=== PATIENT | female | born 1950 ===

== ENCOUNTER 2018-06-16 13:43 | Emergency (ER) | payer MEDICARE, MEDICAID ==
[2018-06-16 13:55] VITALS: BMI 29.5
[2018-06-16 13:59] VITALS: RESP 18
[2018-06-16 14:42] LABS: SQUAMOUS EPITHIAL 1 /hpf (0-5); URINE BACTERIA OCC (<OCC); URINE BILIRUBIN NEGATIVE (NEGATIVE); URINE BLOOD NEGATIVE (NEGATIVE); URINE CLARITY Clear (Clear); URINE COLOR Yellow (YELLOW); URINE GLUCOSE (UA) NORMAL (Normal); URINE LEUKOCYTE ESTERASE TRACE Leu/uL (Negative); URINE PROTEIN NEGATIVE (NEGATIVE); URINE UROBILINOGEN NORMAL mg/dL (0.2-1.0)
[2018-06-16] MEDS ORDERED: Lidocaine 5% Patch TD STA (15:54)
[2018-06-16] MEDS ORDERED: Lidocaine 5% Patch TD ONE (16:04)
--- NOTE | 2018-06-16 16:09 | C.PDOC ---
History Of Present Illness 67 year old female presents to the emergency department with complaints of low back pain radiating down to both legs for the past 2 weeks, associated with pain to the left flank area. Patient denies dysuria, hematuria, weakness, or numbness. Time Seen by Provider: 06/16/18 14:13 Chief Complaint (Nursing): Back Pain History Per: Patient History/Exam Limitations: no limitations Onset/Duration Of Symptoms: Days Current Symptoms Are (Timing): Still Present Past Medical History Reviewed: Historical Data, Nursing Documentation, Vital Signs Vital Signs: Last Vital Signs Temp 98.5 F 06/16/18 18:09 Pulse 64 06/16/18 18:09 Resp 18 06/16/18 18:09 BP 158/78 H 06/16/18 18:09 Pulse Ox 98 06/16/18 18:09 - Medical History PMH: Anemia, Arthritis, Colonic Polyps, Gastritis, HTN, Rheumatoid Arthritis Denies: Fractures, Chronic Kidney Disease Surgical History: Endoscopy, Tonsillectomy - [facility] Procedures CLOSED [ENDOSCOPIC] BIOPSY OF LARYNX (06/22/15) Family History: States: No Known Family Hx - Social History Hx Tobacco Use: No Hx Alcohol Use: No Hx Substance Use: No - Immunization History Hx Tetanus Toxoid Vaccination: No Hx Influenza Vaccination: No Hx Pneumococcal Vaccination: No Review Of Systems Except As Marked, All Systems Reviewed And Found Negative. Constitutional: Negative for: Fever, Chills Cardiovascular: Negative for: Chest Pain Respiratory: Negative for: Shortness of Breath Gastrointestinal: Negative for: Nausea, Vomiting Genitourinary: Negative for: Dysuria, Hematuria Musculoskeletal: Positive for: Back Pain (radiates to both legs) Neurological: Negative for: Weakness, Numbness Physical Exam - Physical Exam Appears: Non-toxic, No Acute Distress Skin: Warm, Dry, No Rash Head: Atraumatic, Normacephalic Eye(s): bilateral: Normal Inspection Oral Mucosa: Moist Neck: Supple Gastrointestinal/Abdominal: Soft, No Tenderness Back: Paraspinal Tenderness (paraspinal midline), Other (Tenderness to left side muscles and left buttocks) Extremity: Other (Tenderness to left posterior thigh) Neurological/Psych: Oriented x3, Normal Speech, Normal Cognition, Other (No neuro deficits) ED Course And Treatment O2 Sat by Pulse Oximetry: 97 (RA) Pulse Ox Interpretation: Normal - Other Rad Lumbar Spine X-ray X-Ray: Read By Radiologist Interpretation: Findings: Levoscoliotic curvature of the lumbar spine. Moderate retrolisthesis of L1 on L2 and L2 on L3. Multilevel anterior osteophyte formation. Prominent anterior osteophytosis at the T10-11 level. Lower level facet hypertrophy and sclerosis. Moderate degenerative changes of the bilateral hips with subchondral sclerosis and osteophytosis. Soft tissue calcifications in the posterior soft tissues at the level of sacrum. Calcified phleboliths in the pelvis. Impression: Degenerative changes. If pain persists , consider MRI. Progress Note: Urinalysis and LS Spine X-ray were ordered. Urinalysis showed negative results and LS Spine X-ray showed moderate degenerative joint disease. On re-evaluation patient feels better, ambulatory with no neuro deficit. Patient is stable to be d/c home with PMD follow up. Disposition - Disposition Referrals: Brian Carney MD [Staff Provider] - Disposition: HOME/ ROUTINE Disposition Time: 18:00 Condition: STABLE Additional Instructions: Follow up with your PMD within 1-2 days. Return to ED if feel worse. Prescriptions: Lidocaine 5% [Lidoderm] 1 patch TP DAILY #30 patch Naproxen [Naprosyn] 1 tab PO BID PRN #25 tab PRN Reason: Pain diaZEpam [Valium] 2 mg PO TID #15 tab Instructions: Low Back Pain (DC) Forms: [employer] (Sami) Print Language: MONGOLIAN - Clinical Impression Clinical Impression: Low back pain - PA / ASSISTANT DIRECTOR OF ADMISSIONS / Resident Statement MD/DO has reviewed & agrees with the documentation as recorded. - Scribe Statement The provider has reviewed the documentation as recorded by the Scribe All medical record entries made by the Scribe were at my direction and personally dictated by me. I have reviewed the chart and agree that the record accurately reflects my personal performance of the history, physical exam, medical decision making, and the department course for this patient. I have also personally directed, reviewed, and agree with the discharge instructions and disposition.
--- NOTE | 2018-06-16 16:36 | RAD ---
Lumbar spine three views History: Low back pain. Comparison: None available. Findings: Levoscoliotic curvature of the lumbar spine. Moderate retrolisthesis of L1 on L2 and L2 on L3. Multilevel anterior osteophyte formation. Prominent anterior osteophytosis at the T10-11 level. Lower level facet hypertrophy and sclerosis. Moderate degenerative changes of the bilateral hips with subchondral sclerosis and osteophytosis. Soft tissue calcifications in the posterior soft tissues at the level of sacrum. Calcified phleboliths in the pelvis. Impression: Degenerative changes. If pain persists, consider MRI.
[2018-06-16 18:10] VITALS: BP 158/78; PULSE 64; TEMP 98.5
[2018-06-16 20:47] VITALS: O2SAT 97
== END 2018-06-16 18:11 | disposition home or self-care (01) ==
LOC: C.ER 13:43
DX: M54.5 Low back pain (principal)
CPT/HCPCS: 72100; 81001; 96372; 99283; J1885